=== PATIENT | female | born 1960 | race Caucasian/White ===

== ENCOUNTER 2019-02-13 14:48 | Emergency (ER) | payer OTHER ==
--- NOTE | 2019-02-13 14:58 | UC ---
Lower Extremity/Ankle HPI - HPI Summary HPI Summary: 58 yo female presents with left posterior foot/ankle pain. She tells me that over the winter (about 6 months ago) she stumbled in a hole in the ground and twisted her left foot/ankle. Since that time she has had some pain about her left foot, but mostly at the posterior ankle. 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 She has seen her chiropractor for this and they are working with a dx of achillis tenditis, but given the prolonged symptoms she was advised to get an XR to rule out bone pathology. She does have some posterior lower calf pain. She denies numbness or tingling to foot. - History of Current Complaint Stated Complaint: L FOOT PAIN Time Seen by Provider: 02/13/19 14:56 Hx Obtained From: Patient Onset/Duration: Gradual Onset Severity Initially: Mild Severity Currently: Mild Pain Intensity: 4 Pain Scale Used: 0-10 Numeric - Allergies/Home Medications Allergies/Adverse Reactions: Allergies Allergy/AdvReac Type Severity Reaction Status Date / Time Sulfa (Sulfonamide Allergy Hives Verified 02/13/19 15:00 Antibiotics) corn oil Allergy Swelling Uncoded 02/13/19 15:00 Home Medications: Home Medications NK [No Home Medications Reported] 02/13/19 [History Confirmed 02/13/19] PMH/Surg Hx/FS Hx/Imm Hx - Additional Past Medical History Additional PMH: None - Surgical History Surgical History: None - Family History Known Family History: Positive: None - Social History Lives: With Family Alcohol Use: Weekly Alcohol Amount: not while on antibiotics Substance Use Type: None Smoking Status (MU): Never Smoked Tobacco Review of Systems All Other Systems Reviewed And Are Negative: Yes Constitutional: Positive: Negative Skin: Positive: Negative Respiratory: Positive: Negative Cardiovascular: Positive: Negative Neurovascular: Positive: Negative Musculoskeletal: Positive: Other: - Left foot/ankle pain Neurological: Positive: Negative Psychological: Positive: Negative Physical Exam - Summary Physical Exam Summary: GENERAL: NAD. WDWN. No pain distress. SKIN: No rashes, sores, lesions, or open wounds. CHEST: No accessory muscle use. Breathing comfortably and in no distress. CV: Pulses intact PT and DP. Cap refill <2seconds MSK: LEFT foot/ankle: FROM. Mild TTP about achilles insertion point at posterior foot/ankle. Mild TTP along lower gastrocnemius. Strength 5/5. No edema or obvious bony deformities. Negative talar tilt. No increased laxity. Negative [place] test. Negative Nickie sign. NEURO: Alert. Sensations intact and symmetric B/L LEs PSYCH: Age appropriate behavior. Triage Information Reviewed: Yes Vital Signs: Vital Signs: Temp Pulse Resp BP Pulse Ox 99.2 F 84 16 126/74 100 02/13/19 14:52 02/13/19 14:52 02/13/19 14:52 02/13/19 14:52 02/13/19 14:52 Vital Signs Reviewed: Yes Lower Extremity Course/Dx - Course Course Of Treatment: XR: IMPRESSION: No fracture of the left foot is identified. Suspect achilles tendinitis. Discussed with pt wearing a CAM boot or shoe inserts, but she drives a manual transmission vehicle and does not think she would be able to use the CAM boot - therefore will try shoe inserts. Will also refer her to physical therapy for eval and treatment - Differential Dx/Diagnosis Provider Diagnosis: Left Achilles tendinitis Discharge - Sign-Out/Discharge Documenting (check all that apply): Patient Departure All imaging exams completed and their final reports reviewed: Yes - Discharge Plan Condition: Stable Disposition: HOME Patient Education Materials: Achilles Tendinitis (ED) Referrals: Kathy Conti MD [Primary Care Provider] - Additional Instructions: If you develop a fever, shortness of breath, chest pain, new or worsening symptoms - please call your PCP or go to the ED immediately. Your X-Ray was normal today. 1) Rest and elevate your foot as much as possible. The longer you are able to rest your foot and be non-weight bearing, the better your foot/ankle should feel. 2) Try using a soft shoe insert to reduce strain on your foot/ankle. - Billing Disposition and Condition Condition: STABLE Disposition: Home - Attestation Statements Provider Attestation: Per institutional requirements, I have reviewed the chart, however, I was not consulted specifically or made aware of this patient by the midlevel provider. I did not personally evaluate, interact with , or disposition this patient.
[2019-02-13 15:00] VITALS: BP 126/74
== END 2019-02-13 15:45 | disposition home or self-care (01) ==
LOC: UCEAST 14:48
DX: M76.62 Achilles tendinitis, left leg (principal); Z88.2 Allergy status to sulfonamides
CPT/HCPCS: 99201; G0463